=== PATIENT | male | born 1940 | race Caucasian/White ===

== ENCOUNTER 2016-09-18 23:38 | Emergency (ER) | payer OTHER ==
[2016-09-18] MEDS ORDERED: NS 1,000 ML IV ONE (23:53)
[2016-09-18 23:58] VITALS: TEMP 97.9; O2SAT 93
--- NOTE | 2016-09-19 00:01 | EDPHY ---
H & P Stated Complaint: pt walking his dog, slipped/fell, R upper arm deformity/pain HPI/ROS: HPI CHIEF COMPLAINT: Right arm injury status post mechanical trip and fall, alcohol intoxication HISTORY OF PRESENT ILLNESS: This patient very pleasant 75-year-old male significant past medical history for GERD, hyperlipidemia, prostate CA, presents to the emergency room by ambulance with right arm pain. Patient took a mechanical trip and fall while walking his dog landing on his right arm. He has an obvious deformity to his mid humerus region. Of note upon arrival here in the emergency room he does smell of alcohol, appears slightly intoxicated. His complaint is 6/10 right humerus pain. Denies any other areas of injury, specifically denies hitting his head, neck pain chest pain or shortness of breath. Past Medical History: Pancreatic CA, GERD, hyperlipidemia Past Surgical History: Left hip surgery Social History: Denies daily use of drugs alcohol tobacco products Family History: Noncontributory ROS REVIEW OF SYSTEMS: A comprehensive 10 point review of systems is otherwise negative aside from elements mentioned in the history of present illness. Exam Constitutional triage nursing summary reviewed, vital signs reviewed, awake/ alert. Eyes normal conjunctivae and sclera, EOMI, PERRLA. HENT normal inspection, atraumatic, moist mucus membranes, no epistaxis, neck supple/ no meningismus, no raccoon eyes. Respiratory clear to auscultation bilaterally, normal breath sounds, no respiratory distress, no wheezing. Cardiovascular rate normal, regular rhythm, no murmur, no edema, distal pulses normal. Gastrointestinal soft, non-tender, no rebound, no guarding, normal bowel sounds, no distension, no pulsatile mass. Genitourinary no CVA tenderness. Musculoskeletal right upper extremity: Obvious deformity and swelling to the mid right humerus, distally neurovascular intact, good cap refill, good pulse, good sensation, full range of motion of fingers and wrist, no midline vertebral tenderness, full range of motion, no calf swelling, no tenderness of extremities, no meningismus, good pulses, neurovascularly intact. Skin pink, warm, & dry, no rash, skin atraumatic. Neurologic awake, alert and oriented x 3, AAOx3, moves all 4 extremities equally, motor intact, sensory intact, CN II-XII intact, normal cerebellar, normal vision, normal speech. Psychiatric normal mood/affect. Heme/Lymph/Immune no lymphadenopathy. Differential Diagnosis: Includes but is not limited to in a particular order right humerus fracture, shoulder dislocation, alcohol intoxication Medical Decision Making: This patient had an IV established receive a fluid bolus, will check basic blood work, patient have an x-ray of his right humerus. Re-evaluation: ED x-ray right humerus: This shows a significantly displaced spiral fracture of the right humerus. Image interpreted by myself. 1215: I will consult Orthopedics at this time for this injury. Most likely patient will need a posterior long-arm splint. At this time is neurovascular intact good cap refill, good pulses, good sensation. Able to move everything but has mid humerus pain on exam. No signs of compartment syndrome at this time. 1233: spoke with Nik PATE for Dr. Mojica he will review the imaging of the humerus. At this time patient is neurovascular intact be placed in a posterior long-arm splint. 1240: I spoke with Marlene Herbert, who recommends posterior long-arm splint, follow up Orthopedic Clinic in the next week. I did go over strict return precautions with this patient understands return to the emergency room if there is any worsening symptoms questions or concerns includes worsening pain, swelling, numbness or tingling or discoloration is fingers he understands I went over this with his . Bynum prescription for pain control. 0111; went over strict return precautions with this patient and his at bedside they understand return emergency room if he has severe pain, worsening swelling, questions or concerns about a splint, numbness or tingling of his hand or discoloration of his fingers. I did re-evaluate this patient after splint placed, he is in a posterior long- arm splint with a sling this is a great position. No signs of compartment syndrome at this time and appears well. He understands he can be discharged follow up with Orthopedics outpatient. Understands return to the ER if he has any worsening symptoms questions or concerns. Source: Patient - Medical/Surgical History Hx Asthma: No Hx Chronic Respiratory Disease: No Hx Diabetes: No Hx Cardiac Disease: Yes Hx Renal Disease: No Hx Cirrhosis: No Hx Alcoholism: No Hx HIV/AIDS: No Hx Splenectomy or Spleen Trauma: No Other PMH: hyperlipidemia, gerd, glaucoma, prostate ca, L hip replacement - Social History Smoking Status: Current every day smoker Constitutional: Initial Vital Signs Temperature (C) 36.6 C 09/18/16 23:53 Heart Rate 101 H 09/18/16 23:53 Respiratory Rate 18 09/18/16 23:53 Blood Pressure 153/94 H 09/18/16 23:53 O2 Sat (%) 93 09/18/16 23:53 O2 Delivery Mode Room Air Allergies/Adverse Reactions: Penicillins Allergy (Verified 09/18/16 23:58) Home Medications: Medication Instructions Recorded Crestor 09/19/16 Flonase Allergy Relief 09/19/16 Hydrocodone/APAP 5/325 [Bynum 1 - 2 tab PO Q4H PRN #20 tab 09/19/16 5/325] Omeprazole 09/19/16 Ondansetron HCl [Zofran] 4 mg PO Q4-6PRN PRN #10 tablet 09/19/16 ZYRTEC 09/19/16 Medical Decision Making - Data Points Laboratory Results: Laboratory Results 09/18/16 23:55 09/18/16 23:55 09/18/16 23:55 WBC 8.86 10^3/uL (3.80-9.50) RBC 5.00 10^6/uL (4.40-6.38) Hgb 16.4 g/dL (13.7-17.5) Hct 46.1 % (40.0-51.0) MCV 92.2 fL (81.5-99.8) MCH 32.8 pg (27.9-34.1) MCHC 35.6 g/dL (32.4-36.7) RDW 13.9 % (11.5-15.2) Plt Count 133 L 10^3/uL (150-400) MPV 9.5 fL (8.7-11.7) Neut % (Auto) 64.1 % (39.3-74.2) Lymph % (Auto) 26.4 % (15.0-45.0) [place] % (Auto) 7.7 % (4.5-13.0) Eos % (Auto) 1.2 % (0.6-7.6) Baso % (Auto) 0.3 % (0.3-1.7) Nucleat RBC Rel Count 0.0 % (0.0-0.2) Absolute Neuts (auto) 5.67 10^3/uL (1.70-6.50) Absolute Lymphs (auto) 2.34 10^3/uL (1.00-3.00) Absolute Monos (auto) 0.68 10^3/uL (0.30-0.80) Absolute Eos (auto) 0.11 10^3/uL (0.03-0.40) Absolute Basos (auto) 0.03 10^3/uL (0.02-0.10) Absolute Nucleated RBC 0.00 10^3/uL (0-0.01) Immature Gran % 0.3 % (0.0-1.1) Immature Gran # 0.03 10^3/uL (0.00-0.10) PT 13.1 SEC (12.0-15.0) INR 1.00 (0.83-1.16) APTT 28.9 SEC (23.0-38.0) Sodium 145 H mEq/L (134-144) Potassium 3.9 mEq/L (3.5-5.2) Chloride 108 mEq/L (97-110) Carbon Dioxide 19 L mEq/l (22-31) Anion Gap 18 mEq/L (8-16) BUN 13 mg/dL (7-23) Creatinine 0.8 mg/dL (0.7-1.3) Estimated GFR > 60 Glucose 112 H mg/dL (70-100) Calcium 8.8 mg/dL (8.5-10.4) Ethyl Alcohol 174 H mg/dL (0-10) Medications Given: Discontinued Medications Sodium Chloride (Ns) 1,000 mls @ 0 mls/hr IV ONCE ONE PRN Reason: Wide Open Stop: 09/18/16 23:54 Last Admin: 09/18/16 23:55 Dose: 1,000 mls Departure - Departure Disposition: Home, Routine, Self-Care Clinical Impression: Humerus fracture Qualifiers: Encounter type: initial encounter Humerus Location: shaft Fracture type: closed Fracture morphology: oblique Fracture alignment: displaced Laterality: right Qualifier Code: (S42.331A) Displaced oblique fracture of shaft of humerus , right arm, initial encounter for closed fracture Condition: Good Instructions: Arm Fracture in Adults (ED) Additional Instructions: 1. Please follow up with Orthopedic surgery. 2. Return to the emergency review of worsening pain, worsening swelling, questions or concerns about your splint, tingling in your fingers, discoloration of your fingers. 3. take Bynum as prescribed for pain control. Referrals: [place],. [Primary Care Provider] - As per Instructions Blaine Mojica MD [Medical Doctor] - As per Instructions Prescriptions: Hydrocodone/APAP 5/325 [Bynum 5/325] 1 - 2 tab PO Q4H PRN #20 tab PRN Reason: Pain, Moderate Ondansetron HCl [Zofran] 4 mg PO Q4-6PRN PRN #10 tablet PRN Reason: Nausea/Vomiting, Use 1st
[2016-09-19 00:04] LABS: % IMMATURE GRANULYOCYTES 0.3 % (0.0-1.1); ABSOLUTE IMMATURE GRANULOCYTES 0.03 10^3/uL (0.00-0.10); ADD DIFF? NO; ADD MORPH? NO; ADD SCAN? NO; ATYPICAL LYMPHOCYTE FLAG 10 (0-99); FRAGMENT RBC FLAG 0 (0-99); HEMATOCRIT 46.1 % (40.0-51.0); HEMOGLOBIN 16.4 g/dL (13.7-17.5); LEFT SHIFT FLG 0 (0-99); LIPEMIA HEMOLYSIS FLAG 90 (0-99); MEAN CELL HEMOGLOBIN 32.8 pg (27.9-34.1); MEAN CELL HEMOGLOBIN CONCENTR. 35.6 g/dL (32.4-36.7); MEAN CELL VOLUME 92.2 fL (81.5-99.8); MEAN PLATELET VOLUME 9.5 fL (8.7-11.7); PLATELET CLUMPS FLAG 20 (0-99); PLATELET COUNT 133 10^3/uL (150-400); RED CELL DISTRIBUTION WIDTH 13.9 % (11.5-15.2)
[2016-09-19 00:12] LABS: PROTIME(PATIENT) 13.1 SEC (12.0-15.0)
[2016-09-19 00:13] LABS: APTT 28.9 SEC (23.0-38.0)
--- NOTE | 2016-09-19 00:16 | DX ---
Right Humerus, 2 Views, at 11:59 p.m. Clinical History: 75-year-old male who fell complains of arm pain. Rule out fracture. Comparison Study: None. Findings: The bones are mildly demineralized. There is an acute, obliquely-oriented fracture involvin g the middiaphyseal portion of the humerus, with 13 mm of medial displacement and 8 mm of posterior d isplacement. A "hairline" fracture component extends more proximally into the diaphysis. The glenohum eral and the acromioclavicular joints remain anatomically-aligned. There is some degenerative osteoar throsis of the acromioclavicular joint. Impression: Acute obliquely-oriented displaced fracture involving the right humeral diaphysis.
[2016-09-19] MEDS ORDERED: ONDANSETRON 4 MG/2 ML VIAL ONE (00:18)
[2016-09-19 00:28] LABS: ANION GAP 18 mEq/L (8-16); CALCIUM 8.8 mg/dL (8.5-10.4); CARBON DIOXIDE 19 mEq/l (22-31); CHLORIDE 108 mEq/L (97-110); CREATININE 0.8 mg/dL (0.7-1.3); ETHANOL SERUM 174 mg/dL (0-10); GLOMERULAR FILTRATION RATE > 60; GLUCOSE 112 mg/dL (70-100); POTASSIUM 3.9 mEq/L (3.5-5.2); SODIUM 145 mEq/L (134-144)
[2016-09-19] MEDS ORDERED: HYDROCOD/APAP 5/325 PREPACK#6 BTL TAKEHOME ONE (01:10)
[2016-09-19 01:27] VITALS: BP 139/80; PULSE 68; RESP 16
== END 2016-09-19 01:27 | disposition home or self-care (01) ==
DX: S42.331A Displaced oblique fracture of shaft of humerus, right arm, initial encounter for closed fracture (principal); F17.200 Nicotine dependence, unspecified, uncomplicated; Z85.07 Personal history of malignant neoplasm of pancreas; Z85.46 Personal history of malignant neoplasm of prostate; W01.0XXA Fall on same level from slipping, tripping and stumbling without subsequent striking against object, initial encounter
CPT/HCPCS: 73060; 96360; 99284; A4565; G0480; J2405